=== PATIENT | male | born 1990 | race Caucasian/White ===

== ENCOUNTER 2025-05-14 19:41 | Emergency (ER) | payer BC ==
[~2025-05-14] VITALS: Ht 193 cm; Wt 198.7 kg
[~2025-05-14 19:41] MED LIST: IBUPROFEN600 MG PO
[2025-05-14 19:44] VITALS: TEMP 98.5
[2025-05-14] MEDS ORDERED: NAPROSYN500 MG PO (20:07)
[2025-05-14] MEDS ORDERED: ORPHENADRINE C100 MG PO (20:07)
[2025-05-14] MEDS: KETOROLAC TROMETHAMINE 60 MG/2 ML VIAL IM ONE (20:14)
[2025-05-14] MEDS: ORPHENADRINE CITRATE 30 MG/ML VIAL IM ONE (20:14)
[2025-05-14 20:21] VITALS: PULSE 92; RESP 18; O2SAT 100
== END 2025-05-14 20:20 | disposition home or self-care (01) ==
LOC: ER 20:00
DX: S39.012A Strain of muscle, fascia and tendon of lower back, initial encounter (principal); X58.XXXA Exposure to other specified factors, initial encounter; Y92.89 Other specified places as the place of occurrence of the external cause; E66.9 Obesity, unspecified; F17.210 Nicotine dependence, cigarettes, uncomplicated
CPT/HCPCS: 99283; J1885; J2360